=== PATIENT | male | born 1950 | race Caucasian/White ===

== ENCOUNTER 2016-07-23 00:20 | Observation (INO) | payer OTHER, MEDICAID ==
[~2016-07-23] VITALS: Ht 188 cm; Wt 117.3 kg
[~2016-07-23 00:20] MED LIST: ADVIL DPS200 MG PO; ASA325 MG PO; ASCORBIC ACID500 MG PO; ASTELIN NASAL S30 ML NS; CENTRUM SILVER1 EAC1 PO; DELTASONE DPS10 MG PO; ELIQUIS5 MG PO; FISH OIL 1,0001 EAC3 PO; FLAX SEED OIL1000 MG PO; GLUCOSAMINE/CHO1 TAB PO; LOPRESSOR DPS50 MG PO; MSM1000 MG PO; NEXIUM40 MG PO; RANEXA500 MG PO; SENOKOT S1 TAB PO; TESSALON PERLE100 M1 PO; TRICOR145 MG PO; TRILEPTAL300 MG PO; ULTRAM DPS50 MG PO; UROXATRAL10 MG PO; VALTREX DPS1 GM PO; VIBRAMYCIN-DPS100 M2 PO; VITAMIN D50000 UNI1 PO
--- NOTE | 2016-07-23 06:13 | ER ---
ADMIT: 07/23/2016 RM/LOC: ER [facility] MR#: [id number] [address] [id number] U[address] GODOY [address] [place] [id number] Emergency Room Report SEX: M AGE: 65 : 1950 DATE: 07/23/2016 HISTORY OF PRESENT ILLNESS: The patient is a 65-year-old male with past medical history of HI with one stent, COPD, atrial fibrillation/RVR, on Eliquis, came to the ER with chief complaint of chest pain. The patient states the pain has started suddenly and is mostly on the right and mid chest and radiates to the left chest and neck and it started 5 hours before coming to the hospital and started while the patient was resting. The patient states he had similar pain like this sometime ago. The patient denies any new onset of shortness of breath. The pain is sharp, and waxing and waning in severity. The pain is not pleuritic and is not increased with palpation. PHYSICAL EXAMINATION: VITAL SIGNS: The patient had normal blood pressure, stable. Heart rate is in 80s and O2 saturation is at baseline, 92% on room air. GENERAL: The patient was in mild distress, lying in bed. HEAD AND NECK: Noncontributory. Trachea was midline. LUNGS: I did not hear any wheezing or crackles. HEART: Normal S1, S2. I did not hear any S3 or S4 gallops. ABDOMEN: Soft, no swelling in the periphery and legs are nontender, and Homans sign is negative. The patient already had an aspirin 81 mg at home, received more aspirin in the ER for a total of 324 mg. Also EKG was done shows normal sinus rhythm without any ST or T changes or Q-waves, with the rate of 80s. The patient received sublingual dose of nitroglycerin, which per patient relieved the pain considerably. The patient is symptom-free at the moment. Cardiac enzymes are negative. Chest x-ray did not show any acute changes from November 2015, and had only the fibrosis and cardiomegaly. PLAN: At the moment, the patient is symptom-free. Internal Medicine was consulted and the patient was admitted for further followups and treatments of chest pain, ruling out acute coronary syndrome. Margarito John MD/ ricky JOB #: [id number] CC: Margarito John MD, Attending Physician
[2016-07-25] MEDS ORDERED: UROXATRAL10 MG PO (12:55)
[2016-07-25] MEDS ORDERED: ZANAFLEX4 MG PO (12:57)
[2016-07-25] MEDS ORDERED: INCRUSE ELLI62.5 MCG IH (12:59)
[2016-07-25] MEDS ORDERED: ALLEGRA DPS180 MG PO (13:00)
[2016-07-25] MEDS ORDERED: FLAX SEED OIL1000 MG PO (13:00)
[2016-07-25] MEDS ORDERED: MSM1000 MG PO (13:00)
[2016-07-25] MEDS ORDERED: DOCUSATE SODIU100 MG PO (13:06)
[2016-07-25] MEDS ORDERED: DUONEB DPS3 ML IH (13:07)
[2016-07-25] MEDS ORDERED: MEDROL DPS4 MG PO (13:08)
--- NOTE | 2016-07-30 11:58 | HP ---
ADMIT: 07/23/2016 RM/LOC: 411 [facility] MR#: [id number] [address] [address] UMER GUALLPA [address] [place] [address] History and Physical SEX: M AGE: 65 : 1950 DATE OF SERVICE: CHIEF COMPLAINT: Shortness of breath, chest tightness. HISTORY OF PRESENT ILLNESS: Mr. Guallpa is a 65-year-old male. He has a past medical history significant for coronary artery disease status post stent in the past as well as history of COPD, who presented to the ER with a complaint of chest tightness. He reports he is getting over being treated for COPD exacerbation, he reports that he does not feel like he ever truly got over it completely. He reports that he tonight was sitting there watching TV, began experiencing some chest tightness. He apparently took a baby aspirin, which did not improve his symptoms. He reports that he was treated with some prednisone and finished this two days ago and notes that he has not had any new lower extremity edema. He did feel some tightness in his chest that radiated up to his jaw, notes that he otherwise has not had new orthopnea or PND. Reports that he came to the ER, they gave him a nitroglycerin which did seem to improve his symptoms although he also then took a breathing treatment which also improved his symptoms. PAST MEDICAL HISTORY: Significant for: 1. BPH. 2. Coronary artery disease, status post stent previously. 3. Former tobacco use. 4. COPD. 5. History of GERD. 6. History of neuropathy. 7. Memory loss. 8. Rotator cuff disease. 9. Hypogonadism. 10.Depression. 11.Obstructive sleep apnea, intolerant of CPAP. 12.Hyperlipidemia. 13.History of cataracts. 14.History of allergies. 15.Atrial fibrillation with RVR, currently in normal sinus rhythm. MEDICATIONS: Currently are: 1. Nexium 40 mg p.o. b.i.d. 2. Vitamin D 50,000 units every other day. 3. Uroxatral 10 mg p.o. daily. 4. Metoprolol 50 mg 1-1/2 p.o. b.i.d. 5. Eliquis 5 mg p.o. b.i.d. 6. TriCor 145 p.o. daily. 7. Tizanidine 4 mg p.o. t.i.d. 8. Tramadol 50 mg two tabs p.o. t.i.d. 9. Ranexa 500 mg p.o. b.i.d. 10.Trileptal 300 mg p.o. daily. 11.MSM 1000 mg p.o. t.i.d. 12.Flaxseed oil 1000 mg p.o. t.i.d. ADMIT: 07/23/2016 RM/LOC: 411 [facility] MR#: [id number] [address] [place] [id number] [place] [address] History and Physical SEX: M AGE: 65 : 1950 13.Centrum Silver p.o. daily. 14.Fish oil 1000 mg p.o. daily. 15.Stool softener daily. 16.Aspirin 325 p.o. daily. 17.Glucovance p.o. daily. 18.Vitamin C 500 mg p.o. b.i.d. 19.Incruse 6.25 daily. SOCIAL HISTORY: Quit smoking back in 1985. He is disabled. His is at his bedside. FAMILY HISTORY: His father of an aneurysm. Mother of breast cancer. Brother with hypertension. ALLERGIES: NEURONTIN. REVIEW OF SYSTEMS: His review of systems was obtained, was otherwise essentially negative. PHYSICAL EXAMINATION: GENERAL: He is alert and oriented, in no apparent distress. HEENT: Pupils are equal, round, reactive. Oropharynx has dry mucous membranes. NECK: Supple. HEART: Normal rate with a regular rhythm. Somewhat distant secondary to his body habitus. LUNGS: Diminished breath sounds bilaterally. ABDOMEN: Soft. Bowel sounds are present. EXTREMITIES: No evidence of edema. ASSESSMENT AND PLAN: 1. Chest pain, really more of like a chest tightness secondary to chronic ADMIT: 07/23/2016 RM/LOC: 411 [facility] MR#: [id number] [id number] [place] [address] History and Physical SEX: M AGE: 65 : 1950 obstructive pulmonary disease exacerbation. We will go ahead and check three sets of cardiac enzymes. His chest x-ray of possible increased vascular congestion. We will go ahead and get a BNP; if this is elevated, we will check an echo. However, I suspect this was more likely due with technique. 2. Coronary artery disease. 3. Obstructive sleep apnea, intolerant of CPAP. 4. Atrial fibrillation. 5. Memory loss. 6. Gastroesophageal reflux disease. We will continue his home medications. We will plan to give him IV steroids, IV antibiotics with anticipated discharge in the morning. Justyna Benitez MD/ ricky JOB #: [id number] CC: Justyna Benitez, Attending Physician Justyna Benitez, Family Physician
== END 2016-07-24 12:20 | disposition home or self-care (01) ==
LOC: ER 00:20 → 4PCU 02:40
PROVIDERS: ADMIT Internal Medicine
DX: J44.9 Chronic obstructive pulmonary disease, unspecified (principal); I25.10 Atherosclerotic heart disease of native coronary artery without angina pectoris; G47.33 Obstructive sleep apnea (adult) (pediatric); I48.91 Unspecified atrial fibrillation; R41.3 Other amnesia; K21.9 Gastro-esophageal reflux disease without esophagitis; F32.9 Major depressive disorder, single episode, unspecified; E78.5 Hyperlipidemia, unspecified; Z87.891 Personal history of nicotine dependence; N40.0 Benign prostatic hyperplasia without lower urinary tract symptoms; Z79.899 Other long term (current) drug therapy; Z79.891 Long term (current) use of opiate analgesic; Z79.82 Long term (current) use of aspirin